=== PATIENT | female | born 1990 | race Caucasian/White ===

== ENCOUNTER 2016-04-30 14:10 | Emergency (ER) ==
[2016-04-30 14:17] VITALS: BP 133/80
--- NOTE | 2016-04-30 14:57 | Diag Imaging Result Document ---
PROCEDURE NAME: ANKLE COMPLETE LEFT - 04/30/2016 PLAIN RADIOGRAPH OF THE LEFT ANKLE, 3 VIEWS: COMPARISON: None available. FINDINGS: There is no definite fracture, dislocation, or intrinsic osseous lesion appreciated. The joint spaces appear to be preserved. There is soft tissue edema at the lateral aspect of the ankle. IMPRESSION: No definite acute osseous abnormality.
--- NOTE | 2016-04-30 16:45 | PROVIDER DOCUMENTATION ---
HPI-Musculoskeletal Pain/Inj - GENERAL Chief Complaint: Extremity Injury Stated Complaint: FALL/ANKLE INJURY Time Seen by Provider: 04/30/16 15:50 Source: patient - HX OF PRESENT ILLNESS-MUSKULOSKELTAL Quality of Pain: reports: aching Severity in ED: mild Onset/Duration: abrupt Timing: still present Modifying Factors: improves with: nothing Any recent injury?: Yes ("I TWISTED MY ANKLE COMING DOWN THE STAIRS." ) Locality of Occurance: Home Similar Symptoms Previously?: No Recently seen or treated by another doctor?: No - FALL INJURY Location of Pain/Injury: reports: lower extremity (LEFT ANKLE PAIN AND SWELLING) Pain Radiation: reports: no radiation Reason for Fall: reports: slipped Symptoms prior to fall:: reports: none Loss of Consciousness: no loss of consciousness Injury Associated Symptoms: reports: denies symptoms - LOWER EXTREMITY PAIN/INJURY Lower Extremities Pain: ankle: left Review of Systems - Adult - REVIEW OF SYSTEMS - ADULT Constitutional: reports: no symptoms reported Eyes: reports: no symptoms reported Ears, Nose, Mouth & Throat: reports: no symptoms reported Cardiovascular: reports: no symptoms reported Respiratory: reports: no symptoms reported Gastrointestinal: reports: no symptoms reported Genitourinary: reports: no symptoms reported Musculoskeletal: reports: see HPI Integumentary: reports: see HPI Neurological: reports: no symptoms reported Psychiatric: reports: no symptoms reported Endocrine: reports: no symptoms reported Allergic/Immunologic: reports: no symptoms reported All Other Systems: Reviewed and Negative Past History - Adult - PAST MEDICAL HISTORY-ADULT Review of Records: reports: Nursing Assessment Review Major Childhood Illnesses: reports: denies history Cardiovascular: reports: denies history Respiratory: reports: denies history Gastrointestinal: reports: denies history Obstetrical/Gynecological: reports: denies history Genitourinary: reports: denies history Musculoskeletal: reports: denies history Neurological: reports: other (trigeminal neuralgia) Endocrine/Immune: reports: denies history Other Conditions: reports: denies history - PRIOR SURGERIES/PROCEDURES Surgical/Procedure History: reports: none - PRIOR HOSPITALIZATIONS Prior Hospitalizations: reports: none - IMMUNIZATION STATUS Childhood Immunizations: See Nurse Assessment Flu Vaccine: See Nurse Assessment - FAMILY HISTORY Family History: reviewed, not pertinent - SOCIAL HISTORY Smoking: denies Physical Exam-Injury Related - Physical Exam-Injury Related Initial Vital Signs Reviewed: Yes General Appearance: appears well Immobilization?: negative: backboard, C-collar, applied in ED, 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: PERRL/EOMI Head, Ears, Nose, Mouth & Throat: negative: normocephalic/atraumatic, moist mucous membranes, normal ENT inspection, TMs normal, pharynx normal, angioedema , dental decay, hearing deficit, pharyngeal erythema, tonsillar exudate, TM abnormal, TM obscurred by cerumen, frontal tenderness, maxillary tenderness, other Neck: full range of motion Respiratory: lungs clear Cardiovascular: normal peripheral pulses, regular rate, rhythm Peripheral Pulses: dorsalis-pedis (L): 3+ Female Genitalia/Pelvic Exam: deferred Rectal Exam: deferred Extremity: normal range of motion, swelling (LEFT LATERAL ANKLE SWOLLEN AND TENDER). negative: non-tender, normal gait Integumentary: swelling, tenderness Neurologic: grossly normal Psych/Mental Status: normal mood/affect - Glascow Coma Score Best Eye Response ([place]): (4) open spontaneously Best Verbal Response ([place]): (5) oriented Best Motor Response ([place]): (6) obeys commands Progress - PLAN OF CARE/RESULTS Progress/Plan/Lab Results: Vital Signs Temp Pulse Resp BP Pulse Ox 04/30/16 14:14 98.0 F 115 H 18 133/80 100 carbamazepine [From Tegretol] Allergy (Verified 04/30/16 16:09) HIVES Latex, Natural Rubber Adverse Reaction (Verified 04/30/16 16:07) HIVES Cyclobenzaprine [Flexeril] 10 mg PO TID PRN #20 tablet 04/30/16 Ibuprofen [Motrin] 800 mg PO Q8H PRN PRN #20 tablet 04/30/16 Magnesium Amino Acid Chelate [Magnesium] 27 mg PO DAILY 04/30/16 LEFT ANKLE WNL NO FRACTURE Departure - Departure Time of Disposition Order: 16:39 DIAGNOSIS: Left ankle sprain Qualifiers: Encounter type: initial encounter Involved ligament of ankle: unspecified ligament Qualified Code(s): S93.402A - Sprain of unspecified ligament of left ankle, initial encounter Disposition: HOME 01 Certified Medical Emergency: Emergent Condition: Stable Additional Instructions: FOLLOW UP WITH YOUR PCP OR ORTHOPEDIST IF NO IMPROVEMENT IN 5-7 DAYS. RETURN TO ER FOR ANY WORSENING SYMPTOMS. ED Follow Up Instructions: You have been treated by a care provider in the Emergency Department. These instructions are being provided to you so you can have an understanding of how to care for yourself upon discharge. Upon discharge from the Emergency Department, you are responsible for making arrangements for follow-up care by a physician of your choice. Take all prescribed medications as directed. Return to the Emergency Department immediately for any new or worsening symptoms. You may call the Physician Referral phone number at [phone] to obtain a list of Physicians who are taking new patients. Prescriptions: Cyclobenzaprine [Flexeril] 10 mg PO TID PRN #20 tablet PRN Reason: Pain Ibuprofen [Motrin] 800 mg PO Q8H PRN PRN #20 tablet PRN Reason: inflammation Referrals: Remberto Grant MD [Primary Care Provider] - Sae Luna MD [STAFF PHYSICIAN] -
[2016-05-01] MEDS ORDERED: MAGNESIUM AMINO ACID CHELATE PO SCH (09:00)
== END 2016-04-30 17:26 | disposition home or self-care (01) ==
LOC: ED 14:10
DX: S93.402A Sprain of unspecified ligament of left ankle, initial encounter (principal); M25.572 Pain in left ankle and joints of left foot; M25.472 Effusion, left ankle; G50.0 Trigeminal neuralgia; W01.0XXA Fall on same level from slipping, tripping and stumbling without subsequent striking against object, initial encounter; Z79.899 Other long term (current) drug therapy